=== PATIENT | female | born 1985 | race Hispanic/Latino ===

== ENCOUNTER 2018-02-08 17:39 | Emergency (ER) | payer OTHER ==
[2018-02-08 18:18] VITALS: RESP 16
[2018-02-08] MEDS ORDERED: Iohexol 240 (50 ml) PO ONE (18:58)
[2018-02-08] MEDS ORDERED: Sodium Chloride 0.9% 1,000 ML IV STA (18:58)
[2018-02-08] MEDS ORDERED: Iohexol 240 (50 ml) ONE ×2 (19:11→21:49)
--- NOTE | 2018-02-08 19:12 | ED PDOC ---
HPI: Abdomen Time Seen by Provider: 02/08/18 18:38 Chief Complaint (Nursing): GI Problem Chief Complaint (Provider): Abd pain History Per: Patient History/Exam Limitations: no limitations Onset/Duration Of Symptoms: Days (1.5 wks) Current Symptoms Are (Timing): Still Present Additional Complaint(s): Diarrhea, nonbloody 2-3x a week. Also nausea, vomit x 1, nonbloody. Has abd cramps. No chest pain, dyspnea, weakness, headaches, dizziness, back pain, dysuria. No new food or drinks. No travel. No one else sick. Past Medical History Reviewed: Nursing Documentation, Vital Signs Vital Signs: Last Vital Signs Temp 98.5 F 02/08/18 18:15 Pulse 90 02/08/18 18:15 Resp 16 02/08/18 18:15 BP 108/73 02/08/18 18:15 Pulse Ox 100 02/08/18 18:15 - Medical History PMH: No Chronic Diseases - Surgical History Surgical History: No Surg Hx - Family History Family History: States: Unknown Family Hx Other Family History: diverticulitis - Social History Alcohol: None Drugs: Denies - Home Medications Home Medications: Ambulatory Orders Medication Instructions Recorded Ciprofloxacin HCl [Cipro] 500 mg PO BID 7 Days tab 02/08/18 Dicyclomine [Dicyclomine HCl] 10 mg PO DAILY PRN 5 Days cap 02/08/18 Metronidazole [Flagyl] 500 mg PO TID 7 Days tablet 02/08/18 Ondansetron [Zofran] 4 mg PO Q8H PRN #6 tab 02/08/18 - Allergies Allergies/Adverse Reactions: Allergies Allergy/AdvReac Type Severity Reaction Status Date / Time egg Allergy ANAPHYLAXIS Verified 02/08/18 18:15 nut - unspecified Allergy ANAPHYLAXIS Verified 02/08/18 18:15 tree nut Allergy ANAPHYLAXIS Verified 02/08/18 18:15 Review of Systems ROS Statement: Except As Marked, All Systems Reviewed And Found Negative Gastrointestinal: Positive for: Nausea, Vomiting, Abdominal Pain, Diarrhea Physical Exam - Reviewed Nursing Documentation Reviewed: Yes Vital Signs Reviewed: Yes - Physical Exam Appears: Positive for: Non-toxic, No Acute Distress Head Exam: Positive for: ATRAUMATIC, NORMAL INSPECTION, NORMOCEPHALIC Skin: Positive for: Normal Color, Warm, DRY Eye Exam: Positive for: EOMI, Normal appearance, PERRL ENT: Positive for: Normal ENT Inspection Neck: Positive for: Normal, Painless ROM Cardiovascular/Chest: Positive for: Regular Rate, Rhythm Respiratory: Positive for: CNT, Normal Breath Sounds Gastrointestinal/Abdominal: Positive for: Soft, Tenderness (diffuse mild) Back: Positive for: Normal Inspection. Negative for: L CVA Tenderness, R CVA Tenderness Extremity: Positive for: Normal ROM. Negative for: Tenderness Neurologic/Psych: Positive for: Alert, Oriented - Laboratory Results Result Diagrams: 02/08/18 19:00 02/08/18 19:00 Interpretation Of Abn Labs: no acute - ECG O2 Sat by Pulse Oximetry: 100 Pulse Ox Interpretation: Normal - Progress ED Course And Treament: 2254 CT Findings: LUNG BASES: The lung bases appear clear. No pleural effusions are seen. LIVER: Unremarkable. GALLBLADDER AND BILE DUCTS: The gallbladder appears within normal limits. No radioopaque gallstones are seen. No biliary ductal dilatation is evident. PANCREAS: Unremarkable. SPLEEN: Unremarkable. ADRENAL GLANDS: Unremarkable. KIDNEYS, URETERS, AND BLADDER: The kidneys appear within normal limits. There is no hydronephrosis or hydroureter. No urinary calculi are seen. STOMACH AND BOWEL: Thick walled loops of ileum compatible with enteritis. Thick walled fluid filled colon is noted with involvement of all segments compatible with diffuse pancolitis. APPENDIX: No evidence of acute appendicitis on CT examination. PERITONEUM: No free fluid. No free air. LYMPH NODES: No lymphadenopathy is evident. REPRODUCTIVE: Unremarkable as visualized. VASCULATURE: No evidence of abdominal aortic aneurysm. BONES: No aggressive appearing osseous lesion. No acute osseous pathology evident. MISCELLANEOUS: Infectious and inflammatory etiologies are considered. Consider follow up with c olonoscopy. IMPRESSION: Enterocolitis as above. Infectious and inflammatory etiologies are considered. Consider follow up with colonoscopy. 2304: Stable. AAOx3. Will rx antibiotics. Will give cipro and flagyl in ER and dc. Fu with GI. Tolerated Po. Disposition - Clinical Impression Clinical Impression: Colitis - Patient ED Disposition Is Patient to be Admitted: No Counseled Patient/Family Regarding: Studies Performed, Diagnosis, Need For Followup, Rx Given - Disposition Referrals: Travis Kumar MD, PhD [Staff Provider] - 02/09/18 Disposition: Routine/Home Disposition Time: 23:05 Condition: STABLE Additional Instructions: Return if not better in 3 days. Prescriptions: Ciprofloxacin HCl [Cipro] 500 mg PO BID 7 Days tab Dicyclomine [Dicyclomine HCl] 10 mg PO DAILY PRN 5 Days cap PRN Reason: Diarrhea Metronidazole [Flagyl] 500 mg PO TID 7 Days tablet Ondansetron [Zofran] 4 mg PO Q8H PRN #6 tab PRN Reason: Nausea/Vomiting Instructions: Colitis Forms: [facility] (E[place]), [facility] ED School/Work Excuse
[2018-02-08 19:18] LABS: BASO % 0.8 % (0.0-2.0); EOS # 0.1 K/uL (0.0-0.7); EOS % 1.3 % (0.0-4.0); HEMOGLOBIN 12.6 g/dL (12.0-16.0); LYMPH # 1.9 K/uL (1.0-4.3); MEAN CELL VOLUME 89.1 fl (81.0-99.0); MEAN CORPUSCULAR HEMOGLOBIN 29.8 pg (27.0-31.0); MEAN CORPUSCULAR HGB CONC 33.5 g/dL (33.0-37.0); MEAN PLATELET VOLUME 7.9 fl (7.2-11.7); MONO # 0.5 K/uL (0.0-0.8); MONO % 8.7 % (0.0-10.0); NEUT # 2.9 K/uL (1.8-7.0); NEUT % 54.2 % (50.0-75.0); NRBC % 0.1 % (0.0-0.0); RBC 4.24 Mil/uL (3.80-5.20); WHITE BLOOD COUNT 5.3 K/uL (4.8-10.8)
[2018-02-08 19:32] LABS: ALB/GLOB RATIO 1.3 (1.0-2.1); ALBUMIN 4.9 g/dL (3.5-5.0); ALT/SGPT 38 U/L (9-52); AST/SGOT 27 U/L (14-36); BLOOD UREA NITROGEN 7 mg/dl (7-17); CALCIUM 9.5 mg/dL (8.4-10.2); GFR NON-AFRICAN AMERICAN > 60
[2018-02-08] MEDS ORDERED: Iohexol 300 100 ML IJ ONE (21:59)
[2018-02-08] MEDS ORDERED: Sodium Chloride 0.9% 50 ML IV ONE (22:00)
[2018-02-09 00:25] VITALS: BP 127/64; PULSE 84; TEMP 97.7; O2SAT 98
--- NOTE | 2018-02-09 12:44 | CT ---
Date of service: 02/08/2018 PROCEDURE: CT Abdomen and Pelvis. HISTORY: Abdominal pain. COMPARISON: None. TECHNIQUE: Contiguous helical/transaxial sections of the abdomen and pelvis performed following oral and intravenous injection of approximately 95 cc Omnipaque 300 contrast material. Additional 2D sagittal and coronal reformats generated. Radiation dose: Total exam DLP = 246.74 mGy-cm. This CT exam was performed using one or more of the following dose reduction techniques: Automated exposure control, adjustment of the mA and/or kV according to patient size, and/or use of iterative reconstruction technique. FINDINGS: LOWER THORAX: Heart size within range of normal. No significant pericardial effusion. Tiny hiatal hernia. Lung bases clear. No infiltrate effusion or basilar pneumothorax. LIVER: The liver is enlarged measuring nearly 21 cm in CC dimension... There is a vague elliptical shaped low-attenuation lesion seen in the anterior aspect left lobe liver which measures approximately 8.0 x 4.5 mm the too small to characterize. This could represent small hemangioma however follow-up CT scan at interval could assess stability.. Portal and splenic veins opacified. GALLBLADDER AND BILE DUCTS: Minimal gallbladder wall prominence likely due to incomplete distention. No evidence of intraluminal gallbladder calculi. No pericholecystic fluid collections. PANCREAS: Unremarkable. No mass. No ductal dilatation. SPLEEN: Unremarkable. No splenomegaly. ADRENALS: There are no adrenal lesions. KIDNEYS AND URETERS: Kidneys demonstrate symmetric nephrograms. No evidence of nephrolithiasis or hydronephrosis. BLADDER: The urinary bladder appears incompletely distended. No evidence of intraluminal urinary bladder calculi. REPRODUCTIVE: Uterus and adnexal structures appear grossly unremarkable. APPENDIX: No evidence to suggest acute appendicitis. BOWEL: Evaluation of the bowel is somewhat limited due to incomplete opacification. The stomach is partially distended with contrast material admixed with some food debris liquid and air. Questionable mild wall thickening of the terminal ileum; rule out infectious versus the pseudocyst may I need to find inflammatory etiologies. No evidence of acute mechanical small bowel obstruction with oral contrast material seen extending into the colon to the level of the proximal sigmoid colon region. Note that the mid and distal sigmoid colon are collapsed and therefore difficult to evaluate.. PERITONEUM: Unremarkable. No fluid collection. No free air. LYMPH NODES: Unremarkable. No enlarged lymph nodes. VASCULATURE: Unremarkable. No aortic aneurysm. No significant aortic atherosclerotic calcification or mural plaque present. BONES: Minor multilevel degenerative spondylosis of the lumbar spine. There are no acute compression fractures nor retropulsed fragments. OTHER FINDINGS: None. IMPRESSION: There appears to be mild wall thickening of the distal ileum; rule out infectious/inflammatory etiologies. Hepatomegaly.
== END 2018-02-08 23:30 | disposition home or self-care (01) ==
LOC: H.ER 17:39
DX: K52.9 Noninfective gastroenteritis and colitis, unspecified (principal)
CPT/HCPCS: 74177; 80053; 81025; 85025; 87230; 99283; J7030; Q9966; Q9967